=== PATIENT | male | born 2000 | race Caucasian/White ===

== ENCOUNTER 2023-08-01 14:22 | Emergency (ER) | payer BC ==
[2023-08-01] MEDS ORDERED: Ibuprofen 800 MG TAB ONE (14:41)
== END 2023-08-01 14:43 | disposition home or self-care (01) ==
LOC: NAV ERS 14:22
DX: I88.9 Nonspecific lymphadenitis, unspecified (principal); K02.9 Dental caries, unspecified; F17.210 Nicotine dependence, cigarettes, uncomplicated; F17.290 Nicotine dependence, other tobacco product, uncomplicated
CPT/HCPCS: 99283